=== PATIENT | male | born 1960 | race American Indian/Alaskan Native ===

== ENCOUNTER 2018-09-14 13:59 | Emergency (ER) | payer SELFPAY ==
[2018-09-14 14:11] VITALS: BP 145/87
--- NOTE | 2018-09-14 14:16 | Emergency Department Report ---
Blank Doc - Documentation Documentation: 58 y o male presents to ED cc of bilateral inguinal hernia cc of pain and states he was refereed here to see a surgeon so that he can have an hernia repair He states he is in a lot of pain 10/10 intensity. 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
--- NOTE | 2018-09-14 15:11 | Emergency Department Report ---
ED General Adult HPI - General Chief complaint: Abdominal Pain Stated complaint: HERNIA Time Seen by Provider: 09/14/18 14:11 Source: patient Mode of arrival: Ambulatory Limitations: No Limitations - History of Present Illness Initial comments: Patient presents to the emergency department with a chief complaint of bilateral hernia pain. Patient states he is here to have surgery because he is tired of the pain. Patient has had these hernias for quite some time. -: Gradual Radiation: non-radiation Severity scale (0 -10): 4 Quality: aching Consistency: constant Improves with: none Worsens with: none Associated Symptoms: denies other symptoms Treatments Prior to Arrival: none - Related Data Previous Rx's Medication Instructions Recorded Last Taken Type traMADol [Ultram] 50 mg PO Q6HR PRN #24 tablet 09/14/18 Unknown Rx Allergies Allergy/AdvReac Type Severity Reaction Status Date / Time No Known Allergies Allergy Verified 09/14/18 14:10 ED Review of Systems ROS: Stated complaint: HERNIA Other details as noted in HPI Comment: All other systems reviewed and negative Constitutional: denies: chills, fever Eyes: denies: eye pain, eye discharge, vision change ENT: denies: ear pain, throat pain Respiratory: denies: cough, shortness of breath, wheezing Cardiovascular: denies: chest pain, palpitations Endocrine: no symptoms reported Gastrointestinal: denies: abdominal pain, nausea, diarrhea Genitourinary: denies: urgency, dysuria Musculoskeletal: denies: back pain, joint swelling, arthralgia Skin: denies: rash, lesions Neurological: denies: headache, weakness, paresthesias Psychiatric: denies: anxiety, depression Hematological/Lymphatic: denies: easy bleeding, easy bruising ED Past Medical Hx - Past Medical History Hx Hypertension: Yes - Surgical History Past Surgical History?: No - Social History Smoking Status: Never Smoker Substance Use Type: Alcohol - Medications Home Medications: Home Medications Medication Instructions Recorded Confirmed Last Taken Type traMADol [Ultram] 50 mg PO Q6HR PRN #24 tablet 09/14/18 Unknown Rx ED Physical Exam - General Limitations: No Limitations General appearance: alert, in no apparent distress - Head Head exam: Present: atraumatic, normocephalic - Eye Eye exam: Present: normal appearance, PERRL, EOMI - ENT ENT exam: Present: mucous membranes moist - Neck Neck exam: Present: normal inspection - Respiratory Respiratory exam: Present: normal lung sounds bilaterally. Absent: respiratory distress - Cardiovascular Cardiovascular Exam: Present: regular rate, normal rhythm. Absent: systolic murmur, diastolic murmur, rubs, gallop - GI/Abdominal GI/Abdominal exam: Present: soft, normal bowel sounds. Absent: distended, tenderness - Rectal Rectal exam: Present: deferred - exam: Present: other (patient has bilateral inguinal hernias that are easily reducible and not incarcerated) - Extremities Exam Extremities exam: Present: normal inspection - Back Exam Back exam: Present: normal inspection - Neurological Exam Neurological exam: Present: alert, oriented X3 - Psychiatric Psychiatric exam: Present: normal affect, normal mood - Skin Skin exam: Present: warm, dry, intact, normal color. Absent: rash ED Course Vital Signs 09/14/18 14:08 Temperature 97.8 F Pulse Rate 93 H Respiratory 18 Rate Blood Pressure 145/87 [Right] O2 Sat by Pulse 96 Oximetry ED Medical Decision Making - Medical Decision Making Discussed plan of care with patient She denies history of seizures Critical care attestation.: If time is entered above; I have spent that time in minutes in the direct care of this critically ill patient, excluding procedure time. ED Disposition Clinical Impression: Hernia, Inguinal hernia Disposition: - TO HOME OR SELFCARE Is pt being admited?: No Does the pt Need Aspirin: No Condition: Stable Instructions: Inguinal Hernia (ED) Additional Instructions: return if worse Referrals: JELLY ENGLE MD [Primary Care Provider] - 3-5 Days AILYN BRUNO MD [Staff Physician] - 3-5 Days Time of Disposition: 15:10
== END 2018-09-14 15:24 | disposition home or self-care (01) ==
LOC: ED 13:59
DX: K40.20 Bilateral inguinal hernia, without obstruction or gangrene, not specified as recurrent (principal); I10 Essential (primary) hypertension
CPT/HCPCS: 99282

== ENCOUNTER 2018-11-20 10:37 | Emergency (ER) | payer SELFPAY ==
[2018-11-20] MEDS ORDERED: ZOFRAN IV ONE (11:06)
[2018-11-20] MEDS ORDERED: SUBLIMAZE IV ONE (11:06)
--- NOTE | 2018-11-20 11:11 | Emergency Department Report ---
HPI - General Chief Complaint: Urogenital-Male Time Seen by Provider: 11/20/18 10:58 - HPI HPI: Room 8 The patient is a 58-year-old male presenting with a chief complaint of hernia pain. Patient states she's had bilateral hernias for years. Patient states he again began having pain in the bilateral inguinal region for the past 3 days. Patient denies nausea or vomiting. Patient states his last occurred this morning. Patient denies history of fever. The patient is his pain a score of 10/10 Location: [See above] Duration: [See above] Quality: [See above] Severity: [See above] Modifying factors: [see above] Context: [see above] Mode of transportation: [not driving] ED Past Medical Hx - Past Medical History Previous Medical History?: Yes Hx Hypertension: Yes - Surgical History Past Surgical History?: No - Family History Family history: no significant - Social History Smoking Status: Current Some Day Smoker Substance Use Type: None (denies illicit drug use), Alcohol (occasional) - Medications Home Medications: Home Medications Medication Instructions Recorded Confirmed Last Taken Type traMADol [Ultram] 50 mg PO Q6HR PRN #24 tablet 09/14/18 Unknown Rx HYDROcodone/APAP 5-325 [[place] 1 - 2 each PO Q6HR PRN #14 tablet 11/20/18 Unknown Rx 5/325] Ibuprofen [Motrin 800 MG tab] 800 mg PO Q8HR PRN #20 tablet 11/20/18 Unknown Rx ED Review of Systems ROS: Stated complaint: HERNIA/PAIN Other details as noted in HPI Constitutional: denies: fever Eyes: denies: eye pain ENT: denies: throat pain Respiratory: no symptoms reported Cardiovascular: denies: chest pain Endocrine: no symptoms reported Gastrointestinal: denies: abdominal pain, nausea, vomiting Genitourinary: other (bilateral inguinal pain) Musculoskeletal: denies: back pain Skin: denies: lesions Neurological: denies: headache Physical Exam - Physical Exam Vital Signs: Vital Signs 11/20/18 10:43 Temperature 98 F Pulse Rate 102 H Respiratory 20 Rate Blood Pressure 145/82 O2 Sat by Pulse 96 Oximetry Physical Exam: GENERAL: The patient is well-developed well-nourished male lying on stretcher appearing to be in mild discomfort. [] HEENT: Normocephalic. Atraumatic. Extraocular motions are intact. Patient has moist mucous membranes. NECK: Supple. Trachea midline CHEST/LUNGS: Clear to auscultation. There is no respiratory distress noted. HEART/CARDIOVASCULAR: Regular. There is no tachycardia. There is no gallop rub or murmur. ABDOMEN: Abdomen is soft, with mild discomfort to palpation in right lower quadrant. Patient has normal bowel sounds. There is no abdominal distention. Trace fullness to the right inguinal region which appears is reducible.No fullness appreciated in the left inguinal region. No evidence of hernias appreciated in the scrotum SKIN: There is no rash. There is no edema. There is no diaphoresis. NEURO: The patient is awake, alert, and oriented. The patient is cooperative. The patient has normal speech MUSCULOSKELETAL: There is no evidence of acute injury. ED Course Vital Signs 11/20/18 10:43 Temperature 98 F Pulse Rate 102 H Respiratory 20 Rate Blood Pressure 145/82 O2 Sat by Pulse 96 Oximetry ED Medical Decision Making - Lab Data Result diagrams: 11/20/18 11:09 11/20/18 11:09 Laboratory Tests 11/20/18 11/20/18 11:09 11:09 WBC 8.5 RBC 4.41 Hgb 14.1 Hct 42.2 MCV 96 H MCH 32 MCHC 33 RDW 14.2 Plt Count 311 Lymph % (Auto) 27.5 [place] % (Auto) 7.7 H Eos % (Auto) 1.9 Baso % (Auto) 0.6 Lymph # 2.3 [place] # 0.7 Eos # 0.2 Baso # 0.1 Seg Neutrophils % 62.3 Seg Neutrophils # 5.3 Sodium 142 Potassium 3.9 Chloride 103.2 Carbon Dioxide 27 Anion Gap 16 BUN 8 L Creatinine 0.7 L Estimated GFR > 60 BUN/Creatinine Ratio 11 Glucose 151 H Calcium 9.2 Total Bilirubin 0.50 AST 47 H ALT 66 H Alkaline Phosphatase 82 Total Protein 8.7 H Albumin 4.0 Albumin/Globulin Ratio 0.9 - Differential Diagnosis hernia pain, incarcerated hernia Critical care attestation.: If time is entered above; I have spent that time in minutes in the direct care of this critically ill patient, excluding procedure time. ED Disposition Clinical Impression: Inguinal pain of both sides, Inguinal hernia Disposition: DC-01 TO HOME OR SELFCARE Is pt being admited?: No Does the pt Need Aspirin: No Condition: Stable Instructions: Inguinal Hernia (ED) Additional Instructions: Return to the emergency department immediately should you develop worsening symptoms, fever, inability to tolerate food or liquid or any other concerns. Prescriptions: Ibuprofen [Motrin 800 MG tab] 800 mg PO Q8HR PRN #20 tablet PRN Reason: Pain, Moderate (4-6) HYDROcodone/APAP 5-325 [[place] 5/325] 1 - 2 each PO Q6HR PRN #14 tablet PRN Reason: Pain Referrals: [facility] [Outside] - 3-5 Days MELANI CAMPOS MD [Staff Physician] - 3-5 Days (Dr. Mann is a surgeon. Please follow up with her for further evaluation of your hernias) Time of Disposition: 12:47
[2018-11-20 11:36] LABS: Basophils # (Auto) 0.1 K/mm3 (0.0-0.1); Basophils % (Auto) 0.6 % (0.0-1.8); Eosinophils # (Auto) 0.2 K/mm3 (0.0-0.4); Eosinophils % (Auto) 1.9 % (0.0-4.3); Hematocrit 42.2 % (35.5-45.6); Hemoglobin 14.1 gm/dl (11.8-15.2); Lymphocytes # (Auto) 2.3 K/mm3 (1.2-5.4); Lymphocytes % (Auto) 27.5 % (13.4-35.0); Mean Corpuscular HGB Conc 33 % (32-34); Mean Corpuscular Volume 96 fl (84-94); Monocytes # (Auto) 0.7 K/mm3 (0.0-0.8); Monocytes % (Auto) 7.7 % (0.0-7.3); Platelet Count 311 K/mm3 (140-440); Red Blood Count 4.41 M/mm3 (3.65-5.03); Red Cell Distribution Width 14.2 % (13.2-15.2)
[2018-11-20 11:51] LABS: Alanine Aminotransferase 66 units/L (7-56); BUN/Creatinine Ratio 11; Blood Urea Nitrogen 8 mg/dL (9-20); Calcium 9.2 mg/dL (8.4-10.2); Hemolysis Index 17
--- NOTE | 2018-11-20 12:37 | Cat Scan Report ---
CT ABDOMEN AND PELVIS WITH IV CONTRAST, 11/20/2018 INDICATION: Bilateral inguinal pain. TECHNIQUE: Following the administration of intravenous contrast, multiple axial CT images of the abdo men and pelvis were acquired. Sagittal and coronal reformats were obtained. All CT performed at this facility utilize dose reduction techniques including automated exposure control, iterative reconstru ction and weight based dosing when appropriate to reduce patient radiation dose to as low as reasonab ly achievable. COMPARISON: No prior studies are available for comparison FINDINGS: Limited imaging of the bilateral lung bases demonstrates no evidence of acute abnormality. Abdomen: The liver, gallbladder, spleen, pancreas, bilateral adrenal glands and bilateral kidneys garcía w no definitive evidence of acute abnormality. There is a small cyst in the lower pole of the right [place]. The large and small bowel are normal in caliber. Pelvis: There is moderate diverticulosis of the sigmoid colon without definitive evidence of divertic ulitis. No free fluid is seen within the pelvis. The urinary bladder appears normal. The prostate gla nd is moderately enlarged. There is a fat-containing right inguinal hernia without evidence for infla mmatory change. Evaluation of bony structures demonstrate degenerative changes of both hips. Evaluation of soft tissu e structures shows no acute abnormality. IMPRESSION: 1. No evidence of focal inflammatory or obstructive process within the abdomen or pelvis. 2. Fat-containing right inguinal hernia without inflammatory change. 3. Sigmoid diverticulosis without evidence of diverticulitis. Signer Name: Shila Hoff MD Signed: 11/20/2018 12:33 PM Workstation Name: [id number]
[2018-11-20 13:09] VITALS: BP 143/88
== END 2018-11-20 13:09 | disposition home or self-care (01) ==
LOC: ED 10:37
DX: K40.90 Unilateral inguinal hernia, without obstruction or gangrene, not specified as recurrent (principal); I10 Essential (primary) hypertension
CPT/HCPCS: 36415; 74177; 80053; 85025; 96374; 96375; 99284; J2405; J3010; Q9967

== ENCOUNTER 2021-05-08 23:04 | Emergency (ER) | payer SELFPAY ==
[2021-05-09] MEDS ORDERED: MORPHINE 4 MG/1 ML INJ IV ONE (00:54)
[2021-05-09] MEDS ORDERED: ONDANSETRON 4 MG/2 ML INJ IV ONE (00:54)
[2021-05-09] MEDS ORDERED: TETANUS,DIPH,PERTUSS(ACELL) VACCINE 0.5 ML SYRINGE IM ONE (00:55)
[2021-05-09] MEDS ORDERED: SODIUM CHLORIDE 0.9% 1000 ML 1,000 ML IV ONE (00:55)
[2021-05-09] MEDS ORDERED: LIDOCAINE (1%) 10 MG/1 ML VIAL 20 ML MDV INFILTRATI ONE (00:55)
[2021-05-09] MEDS ORDERED: SODIUM CHLORIDE 0.9% IRR 500 ML BOTTLE IR ONE (00:55)
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
[2021-05-09 01:44] LABS: Basophils # (Auto) 0.4 K/mm3 (0.0-0.1); Basophils % (Auto) 2.7 % (0.0-1.8); Hematocrit 47.6 % (35.5-45.6); Hemoglobin 15.7 gm/dl (11.8-15.2); Lymphocytes # (Auto) 1.2 K/mm3 (1.2-5.4); Lymphocytes % (Auto) 9.1 % (13.4-35.0); Mean Corpuscular HGB Conc 33 % (32-34); Mean Corpuscular Volume 97 fl (84-94); Monocytes # (Auto) 0.6 K/mm3 (0.0-0.8); Monocytes % (Auto) 4.8 % (0.0-7.3); Platelet Count 362 K/mm3 (140-440); Red Blood Count 4.91 M/mm3 (3.65-5.03); Red Cell Distribution Width 14.2 % (13.2-15.2)
[2021-05-09 01:50] LABS: Alanine Aminotransferase 13 units/L (7-56); Albumin 4.6 g/dL (3.9-5); BUN/Creatinine Ratio 9; Blood Urea Nitrogen 10 mg/dL (9-20); Calcium 9.2 mg/dL (8.4-10.2); Hemolysis Index 16
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
[2021-05-09 01:53] LABS: INR 1.03 (0.87-1.13)
[2021-05-09 01:56] LABS: Bacteria,Urine 1+ /HPF (Negative); Bilirubin,Urine NEG (Negative); Blood,Urine NEG (Negative); Color,Urine Yellow (Yellow); Mucus,Urine FEW /HPF; Protein,Urine <15 mg/dL mg/dL (Negative); Urobilinogen,Urine < 2.0 mg/dL (<2.0)
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
[2021-05-09 05:03] VITALS: BP 123/67
--- NOTE | 2021-05-09 11:01 | Electrocardiograph Report ---
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
== END 2021-05-09 05:04 ==
LOC: ED 23:04
DX: S01.511A Laceration without foreign body of lip, initial encounter (principal); S09.90XA Unspecified injury of head, initial encounter; F10.129 Alcohol abuse with intoxication, unspecified; I10 Essential (primary) hypertension; R10.9 Unspecified abdominal pain; R07.89 Other chest pain; M54.2 Cervicalgia; M79.641 Pain in right hand; F17.200 Nicotine dependence, unspecified, uncomplicated; Z79.82 Long term (current) use of aspirin; Z79.899 Other long term (current) drug therapy; V89.2XXA Person injured in unspecified motor-vehicle accident, traffic, initial encounter; W22.19XA Striking against or struck by other automobile airbag, initial encounter; Y93.89 Activity, other specified; Y92.89 Other specified places as the place of occurrence of the external cause; Y99.8 Other external cause status
CPT/HCPCS: 12013; 36415; 70450; 70486; 71260; 72125; 73130; 74177; 80053; 81001; 82550; 83690; 84484; 85025; 85610; 90471; 90715; 93005; 96361; 96374; 96375; 99284; J2270; J2405; J3490; J7030; Q9967; 80320; 96372; Q0162; G0480